=== PATIENT | male | born 1940 | race Caucasian/White ===

== ENCOUNTER 2017-12-01 03:08 | Emergency (ER) | payer OTHER ==
[~2017-12-01] VITALS: Ht 172.7 cm; Wt 100.0 kg
[~2017-12-01 03:08] MED LIST: ASPI-232 PO; CIPR-255 PO; CLOP1TAB15 PO; COEN1CAP17 PO; HYDR25TA4 PO; IMD/2 PO; LOSA1TAB PO; METO50TA8 PO; NITR0.4S UT; SIMV20TA2 PO
[2017-12-01 03:11] VITALS: TEMP 36.7; Ht 172.7 cm; Wt 100.0 kg
[2017-12-01] MEDS ORDERED: SODIUM CHLORIDE 0.9% 1000ML 1,000 ML IV STA (03:26)
--- NOTE | 2017-12-01 03:34 | EMERGENCY ROOM VISIT NOTE ---
History Report prepared by Angelika: Beatriz Crooks Under the Supervision of: Dr. Abiola Hanson D.O. First contact with patient: 03:16 Chief Complaint: VOMITING Stated Complaint: VOMITING,DIARRHEA History of Present Illness The patient is a 77 year old male who presents to the Emergency Room with complaints of vomiting and diarrhea beginning at midnight tonight. He is accompanied by his who reports that he was feeling fine when he went to bed , and then his symptoms suddenly began. The patient has nausea and some abdominal pain, but the abdominal pain is resolved. His gave him a Zofran which alleviated his nausea. He denies any chest pain, SOB, blood in his vomit or stool, or any alcohol use in the past couple of days. 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 Source of History: patient, spouse/significant other () Onset: midnight tonight Position: abdomen Quality: other (vomiting and diarrhea) Timing: other (sudden) Modifying Factors (Relieving): anti-emetics (Zofran) Associated Symptoms: + nausea, + abdominal pain (resolved), No chest pain, No SOB Note: Negative blood in his vomit or stool, any alcohol use in the past couple of days Review of Systems See HPI for pertinent positives & negatives. A total of 10 systems reviewed and were otherwise negative. 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 (4) IMPAIRED FASTING GLUCOSE Family History Diabetes mellitus Hypertension Social History Smoking Status: Never Smoker Alcohol Use: none Drug Use: none Marital Status: Occupation Status: employed Current/Historical Medications Scheduled Aspirin (Aspir-81), 81 MG PO DAILY Coenzyme Q10 (Ubidecarenone) (Co Q 10), 200 MG PO DAILY Hydrochlorothiazide (Hctz), 25 MG PO DAILY Losartan Potassium (Cozaar), 25 MG PO DAILY Metoprolol Succ (Toprol Xl) (Toprol-Xl), 50 MG PO DAILY Simvastatin (Zocor), 20 MG PO QPM Scheduled PRN Nitroglycerin (Nitrostat), 0.4 MG UT UD PRN for Chest Pain Ondansetron Hcl (Zofran), 4 MG PO QID PRN for Nausea Ondansetron Hcl (Zofran), 4 MG PO Q6 PRN for Nausea Allergies Uncoded Allergies: DECONGESTANTS (Allergy, Unknown, RASH, 12/01/17) Physical Exam Vital Signs Date Time Temp Pulse Resp B/P (MAP) Pulse Ox O2 Delivery O2 Flow Rate FiO2 12/01/17 05:42 87 18 103/49 95 12/01/17 05:05 94 18 97/51 12/01/17 03:11 36.7 69 18 114/69 100 Room Air Physical Exam HEENT: Head - normocephalic and atraumatic Pupils are equal, round, and reactive to light. Extraocular eye muscles are intact, and sclera are anicteric. Nose - moist nasal mucosa without discharge. Mouth - moist buccal mucosa. Oropharynx is nonerythematous and there is no tonsillar exudate or edema noted. Neck: Supple; no JVD, nuchal rigidity, cervical lymphadenopathy. Heart: Regular rate and rhythm. There is a normal S1 and S2 with no murmurs, clicks, or gallops appreciated. Lungs: Clear to auscultation bilaterally with no wheezes, rales, or rhonchi. Abdomen: Soft, completely nontender, nondistended, with good bowel sounds. There are no palpable pulsatile masses or hepatosplenomegaly. There is no guarding, rigidity, or rebound noted. Extremities: No evidence of cyanosis, clubbing, or edema. There are easily palpable peripheral pulses. Skin: warm and dry with good turgor and no rashes. Medical Decision & Procedures Laboratory Results 12/01/17 03:25 Red Blood Count 5.14, Mean Corpuscular Volume 90.1, Mean Corpuscular Hemoglobin 30.7, Mean Corpuscular Hemoglobin Concent 34.1, Mean Platelet Volume 11.0, Neutrophils (%) (Auto) 80.6, Lymphocytes (%) (Auto) 3.9, Monocytes (%) (Auto) 13.7, Eosinophils (%) (Auto) 1.5, Basophils (%) (Auto) 0.1, Neutrophils # (Auto ) 10.43, Lymphocytes # (Auto) 0.51, Monocytes # (Auto) 1.78, Eosinophils # (Auto ) 0.20, Basophils # (Auto) 0.01 12/01/17 03:25 Test 12/01/17 03:25 White Blood Count 12.95 K/uL (4.8-10.8) Red Blood Count 5.14 M/uL (4.7-6.1) Hemoglobin 15.8 g/dL (14.0-18.0) Hematocrit 46.3 % (42-52) Mean Corpuscular Volume 90.1 fL (80-100) Mean Corpuscular Hemoglobin 30.7 pg (25-34) Mean Corpuscular Hemoglobin Concent 34.1 g/dl (32-36) Platelet Count 122 K/uL (130-400) Mean Platelet Volume 11.0 fL (7.4-10.4) Neutrophils (%) (Auto) 80.6 % Lymphocytes (%) (Auto) 3.9 % Monocytes (%) (Auto) 13.7 % Eosinophils (%) (Auto) 1.5 % Basophils (%) (Auto) 0.1 % Neutrophils # (Auto) 10.43 K/uL (1.4-6.5) Lymphocytes # (Auto) 0.51 K/uL (1.2-3.4) Monocytes # (Auto) 1.78 K/uL (0.11-0.59) Eosinophils # (Auto) 0.20 K/uL (0-0.5) Basophils # (Auto) 0.01 K/uL (0-0.2) RDW Standard Deviation 43.2 fL (36.4-46.3) RDW Coefficient of Variation 13.2 % (11.5-14.5) Immature Granulocyte % (Auto) 0.2 % Immature Granulocyte # (Auto) 0.02 K/uL (0.00-0.02) Anion Gap 8.0 mmol/L (3-11) Est Creatinine Clear Calc Drug Dose 43.0 ml/min Estimated GFR () 45.7 Estimated GFR (Non- 39.5 BUN/Creatinine Ratio 15.2 (10-20) Calcium Level 9.7 mg/dl (8.5-10.1) Total Bilirubin 1.1 mg/dl (0.2-1) Direct Bilirubin 0.3 mg/dl (0-0.2) Aspartate Amino Transf (AST/SGOT) 23 U/L (15-37) Alanine Aminotransferase (ALT/SGPT) 31 U/L (12-78) Alkaline Phosphatase 71 U/L (45-117) Total Protein 9.4 gm/dl (6.4-8.2) Albumin 4.6 gm/dl (3.4-5.0) Lipase 119 U/L (73-393) Laboratory results per my review. Medications Administered Medications (Trade) Dose Ordered Sig/Lanre Route Start Time Stop Time Status Last Admin Dose Admin Sodium Chloride 1,000 ml @ 999 mls/hr Q1H1M STAT IV 12/01/17 03:26 12/01/17 04:26 DC 12/01/17 03:29 999 MLS/HR Sodium Chloride 500 ml @ 999 mls/hr Q31M STAT IV 12/01/17 05:07 12/01/17 05:37 DC 12/01/17 05:14 999 MLS/HR Procedure NSS IV ED Course 0323: The patient was evaluated in room B2. A complete history and physical examination were performed. Nursing notes and previous electronic medical records were reviewed. IV lock was established and labs were drawn as above. 0326: Ordered Sodium Chloride 1000 ml @ 999 mls/hr IV. 0427: I checked on the patient at this time. He was asleep. I woke him up and he states he feels much better .He is going to try and drink some water. 0501: Upon reevaluation, the patient feels much better and he drank water without any difficulty. He asked for another prescription of Zofran as theirs was . He was also slightly hypotensive before discharge so he will receive more NSS. I discussed findings and results with him. He verbalized agreement of the treatment plan. He was discharged home. 0507: Ordered Sodium Chloride 500 ml @ 999 mls/hr IV. Medical Decision The patient is a 77 year old male who presents to the Emergency Room with complaints of vomiting and diarrhea beginning at midnight tonight. Differential diagnosis includes gastroenteritis, food borne illness, dehydration, as well as others were entertained. Lab results show WBC 12.9 Stable H and H BUN 25 Creatinine 1.65 which s baseline for him Glucose 179 Total bilirubin slightly elevated at 11 Direct bilirubin 0.3 This is a 77-year-old male patient who presents to the emergency department with an abrupt onset of vomiting and diarrhea. Initially, the patient did have some abdominal pain but this has subsided. He was also significantly nauseated. The patient was given a Zofran at home which relieved the nausea. He had no further episodes of vomiting or diarrhea while here in the emergency department. He was encouraged to rest and take plenty of clear liquids and bland diet throughout the day today. He should return here to the emergency department if he develops any worsening symptoms. Otherwise, he can follow-up with his PCP if the vomiting or diarrhea persists. Medication Reconcilliation Current Medication List: was personally reviewed by me Blood Pressure Screening Patient's blood pressure: Normal blood pressure Blood pressure disposition: Did not require urgent referral Impression Primary Impression: Nausea, vomiting, and diarrhea Scribe Attestation The scribe's documentation has been prepared under my direction and personally reviewed by me in its entirety. I confirm that the note above accurately reflects all work, treatment, procedures, and medical decision making performed by me. Departure Information Dispostion Home / Self-Care Prescriptions Ondansetron Hcl (ZOFRAN) 4 Mg Tab 4 MG PO Q6 Y for Nausea, #20 TAB Prov: Abiola Hanson D.O. 12/01/17 Referrals No Doctor, Assigned (PCP) Forms HOME CARE DOCUMENTATION FORM, IMPORTANT VISIT INFORMATION Patient Instructions My [facility] Additional Instructions Rest Take a bland diet and plenty of clear liquids. Zofran-1 tab by mouth every 6-8 hours for nausea. Follow-up with your PCP if vomiting or diarrhea persists.
[2017-12-01 03:37] LABS: BASO % 0.1 %; BASO ABS # 0.01 K/uL (0-0.2); EOS % 1.5 %; HEMATOCRIT 46.3 % (42-52); HEMOGLOBIN 15.8 g/dL (14.0-18.0); IG# 0.02 K/uL (0.00-0.02); LYMPH % 3.9 %; LYMPH ABS # 0.51 K/uL (1.2-3.4); MEAN CELL VOLUME 90.1 fL (80-100); MEAN CORPUSCULAR HEMOGLOBIN 30.7 pg (25-34); MEAN CORPUSCULAR HGB CONC 34.1 g/dl (32-36); MONO % 13.7 %; MONO ABS # 1.78 K/uL (0.11-0.59); NEUT % 80.6 %; NEUT ABS # 10.43 K/uL (1.4-6.5); PLATELET COUNT 122 K/uL (130-400); RED CELL DISTRIBUTION WIDTH CV 13.2 % (11.5-14.5); RED CELL DISTRIBUTION WIDTH SD 43.2 fL (36.4-46.3); WHITE BLOOD COUNT 12.95 K/uL (4.8-10.8)
[2017-12-01 04:00] LABS: ALBUMIN 4.6 gm/dl (3.4-5.0); CALCIUM 9.7 mg/dl (8.5-10.1); CREATININE 1.65 mg/dl (0.60-1.40); POTASSIUM 3.9 mmol/L (3.5-5.1); TOTAL PROTEIN 9.4 gm/dl (6.4-8.2)
[2017-12-01] MEDS ORDERED: ONDA4TAB46 PO ×2 (04:21→05:08)
[2017-12-01] MEDS ORDERED: SODIUM CHLORIDE 0.9% 500ML 500 ML IV STA (05:07)
[2017-12-01 05:42] VITALS: BP 103/49; PULSE 87; O2SAT 95
== END 2017-12-01 05:43 | disposition home or self-care (01) ==
LOC: C.EDB 03:09
DX: R11.2 Nausea with vomiting, unspecified (principal); R19.7 Diarrhea, unspecified; R17 Unspecified jaundice; C18.9 Malignant neoplasm of colon, unspecified; I10 Essential (primary) hypertension; Z79.82 Long term (current) use of aspirin; Z79.899 Other long term (current) drug therapy; Z88.8 Allergy status to other drugs, medicaments and biological substances